=== PATIENT | female | born 1990 | race Caucasian/White ===

== ENCOUNTER 2021-06-13 10:28 | Emergency (ER) | payer BC ==
[~2021-06-13 10:28] MED LIST: BACTRIM DS TAB1 EACH PO; BACTROBAN OINT22 GM EXT; DIFLUCAN150 MG PO; HYDROCHLOROTHIA25 MG PO; IBUPROFEN800 MG PO; LEVAQUIN500 MG PO; TENORMIN 25 MG25 MG PO
[2021-06-13 12:17] LABS: HEMOGLOBIN 15.8 gm/dl (12.3-15.3); RED BLOOD COUNT 5.27 M/UL (4.00-5.10); WHITE BLOOD COUNT 11.4 K/UL (4.5-11.0)
[2021-06-13 12:36] LABS: BUN/CREATININE RATIO 12 (0-10)
== END 2021-06-13 18:35 | disposition other institution (70) ==
LOC: ER1 10:28
PROVIDERS: Family Medicine
DX: U07.1 COVID-19 (principal); N13.2 Hydronephrosis with renal and ureteral calculous obstruction; I10 Essential (primary) hypertension; F17.290 Nicotine dependence, other tobacco product, uncomplicated
CPT/HCPCS: 80053; 81001; 83690; 84703; 85025; 87086; 96374; 96375; 96376; 99284; J0696; J1885; J2270; J2405; U0002